=== PATIENT | female | born 1975 | race African-American/Black ===

== ENCOUNTER 2021-02-04 17:36 | Emergency (ER) | payer OTHER, SELFPAY ==
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
[2021-02-04 17:38] VITALS: BP 136/81; PULSE 78; RESP 18; TEMP 36.3; O2SAT 100
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
== END 2021-02-04 19:00 | disposition home or self-care (01) ==
LOC: ANHED 18:46
PROVIDERS: Emergency Provider Emergency Medicine; PCP Internal Medicine
DX: S40.012A Contusion of left shoulder, initial encounter (principal); V43.52XA Car driver injured in collision with other type car in traffic accident, initial encounter
CPT/HCPCS: 73030; 99283

== ENCOUNTER → 2021-02-10 14:23 | Outpatient (CLI) | payer OTHER, SELFPAY ==
--- NOTE | ~2021-02-10 | MM_ITS ---
EXAMINATION: MM screening rod BI w mora HISTORY: Screening mammogram TECHNIQUE: Craniocaudal and mediolateral oblique 3-D tomosynthesis images were obtained and synthetic 2-D images were generated. CAD analysis was submitted and interpreted. COMPARISON: No prior mammogram is available for comparison at this institution. BREAST PARENCHYMAL COMPOSITION: The breasts are extremely dense, which lowers the sensitivity of mamm ography. FINDINGS: There is no evidence of suspicious mass, calcification, or architectural distortion to sugg est malignancy in either breast. There has been no suspicious interval change. IMPRESSION: 1. No mammographic evidence of malignancy. 2. Recommend routine screening mammography in one year. BI-RADS Category 1: Negative Reviewed, dictated and finalized at location A. 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
--- NOTE | ~2021-02-10 | XR_ITS ---
XR lumbar spine 2-3V 02/10/2021 14:55 Indication: Low back pain Procedure: 3 views lumbar spine Comparison: No prior studies for comparison. Findings: There is mild levocurvature of the thoracolumbar spine. Vertebral body heights are maintain ed. No significant disc narrowing. No acute fracture, subluxation or dislocation. There is mild facet hypertrophy at L5-S1. No evidence for spondylolisthesis. Pedicles intact. Sacral foramen are symmetr ic. Impression: 1: Mild lumbar spondylosis with levoscoliosis. Reviewed, dictated and finalized at location A. 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
== END ==
PROVIDERS: PCP Internal Medicine; Visit Provider Internal Medicine
DX: M54.50 Low back pain, unspecified (principal); Z12.31 Encounter for screening mammogram for malignant neoplasm of breast; M47.816 Spondylosis without myelopathy or radiculopathy, lumbar region; M41.86 Other forms of scoliosis, lumbar region
CPT/HCPCS: 72100; 77063; 77067